=== PATIENT | male | born 1955 | race American Indian/Alaskan Native ===

== ENCOUNTER 2021-01-10 11:51 | Emergency (ER) | payer MEDICARE ==
[2021-01-10 13:41] VITALS: BP 132/73
[2021-01-10] MEDS ORDERED: LIDOCAINE (1%) 10 MG/1 ML VIAL 20 ML MDV INFILTRATI ONE (15:23)
[2021-01-10] MEDS ORDERED: SODIUM CHLORIDE 0.9% IRR 500 ML BOTTLE IR ONE (15:23)
--- NOTE | 2021-01-10 15:53 | XRay Report ---
LEFT ELBOW 2 VIEW(S) INDICATION / CLINICAL INFORMATION: Fell on glass has a laceration to left arm COMPARISON: None available. FINDINGS: BONES / JOINT(S): No acute fracture or subluxation. Mild tricompartment degenerative arthrosis. Promi nent enthesopathic new bone formation at the distal triceps insertion. SOFT TISSUES: Soft tissue laceration of the posterior lateral left elbow with several tiny, punctate densities which could represent foreign body debris. ADDITIONAL FINDINGS: None. Signer Name: Miesha Bryan MD Signed: 01/10/2021 3:49 PM Workstation Name: [id number]
[2021-01-10] MEDS: TETANUS,DIPH,PERTUSS(ACELL) VACCINE 0.5 ML SYRINGE IM ONE ×2 (16:49→18:13)
--- NOTE | 2021-01-10 17:29 | Event Note ---
Face to Face: For this encounter I have reviewed the PA/BUNG REMOVER documentation, treatment plan, medical decision making, and I had face to face time with this patient. I personally reviewed the radiographs. I did see radiopaque foreign body adjacent to the olecranon. However patient's laceration is superior and lateral to the olecranon process. I have low suspicion for retained glass. However patient understands that if he has continued pain paresthesias bleeding that he will need reevaluation by orthopedic surgeon. We have referred patient orthopedic surgeon. He is not having pain bleeding or paresthesias at this time. Patient is aware of the remote possibility of retained glass.
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
== END 2021-01-10 18:30 | disposition home or self-care (01) ==
LOC: ED 11:51
DX: S51.022A Laceration with foreign body of left elbow, initial encounter (principal); I10 Essential (primary) hypertension; E11.8 Type 2 diabetes mellitus with unspecified complications; Z98.890 Other specified postprocedural states; X58.XXXA Exposure to other specified factors, initial encounter; Y93.89 Activity, other specified; Y92.89 Other specified places as the place of occurrence of the external cause; Y99.8 Other external cause status
CPT/HCPCS: 90471; 90715; 99283

== ENCOUNTER 2021-01-27 14:24 | Emergency (ER) | payer MEDICARE ==
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
[2021-01-27 16:37] VITALS: BP 136/86
== END 2021-01-27 16:37 | disposition home or self-care (01) ==
LOC: ED 14:24
DX: S51.012D Laceration without foreign body of left elbow, subsequent encounter (principal); W45.8XXD Other foreign body or object entering through skin, subsequent encounter